=== PATIENT | male | born 1985 | race Caucasian/White ===

== ENCOUNTER 2025-03-17 19:43 | Emergency (ER) | payer SELFPAY ==
[~2025-03-17] VITALS: Ht 188 cm; Wt 117.9 kg
[2025-03-17 19:49] VITALS: PULSE 91; RESP 18; O2SAT 94
[2025-03-17 19:59] LABS: BASOPHILS % 0.7 % (0.0-1.0); EOSINOPHILS % 5.1 % (0.0-6.0); LYMPHOCYTES % 24.8 % (18.0-39.1); MONOCYTES % 9.0 % (4.4-11.3); NEUTROPHILS % 60.0 % (38.7-80.0); RED CELL DISTRIBUTION WIDTH 12.8 % (11.7-14.4)
[2025-03-17] MEDS: METHYLPREDNISOLONE SOD SUCC 125 MG/2ML VIAL IV ONE (19:59)
[2025-03-17] MEDS: MAGNESIUM SULFATE 2GM/50ML 50 ML IV ONE (20:02)
[2025-03-17] MEDS: ALBUTEROL/IPRATROPIUM 3 ML NEB NEB ONE ×2 (20:09→21:50)
[2025-03-17 20:23] LABS: EST GLOMERULAR FILTRATION RATE 71.0 ML/MIN (>=60)
[2025-03-17 20:28] LABS: CORONAVIRUS COVID-19 AG NEGATIVE (NEGATIVE)
[2025-03-17] MEDS ORDERED: IOPAMIDOL 370 MG/ML 100 ML INFUS..BTL INJ ONE (20:55)
[2025-03-17 21:50] VITALS: PULSE 86; RESP 18; O2SAT 100
[2025-03-17 22:04] VITALS: PULSE 89; RESP 18
[2025-03-17] MEDS ORDERED: AZITHROMYCIN250 MG PO (22:25)
[2025-03-17] MEDS ORDERED: PREDNISONE20 MG PO (22:25)
[2025-03-17] MEDS ORDERED: ALBUTEROL0.63 MG/3 NEB (22:25)
[2025-03-17] MEDS ORDERED: VENTOLIN HFA18 GM INH (22:25)
[2025-03-17 22:30] VITALS: PULSE 87; RESP 16; TEMP 98.3; O2SAT 100
[2025-03-17] MEDS ORDERED: ALBUTEROL/IPRATROPIUM 3 ML NEB NEB SCH (23:00)
[2025-03-18] MEDS ORDERED: METHYLPREDNISOLONE SOD SUCC 40 MG/ML VIAL 1ML IV SCH
== END 2025-03-17 22:35 | disposition home or self-care (01) ==
LOC: EDSEX 19:43 → ER 19:55
DX: R09.02 Hypoxemia (principal); J45.901 Unspecified asthma with (acute) exacerbation; Z11.52 Encounter for screening for COVID-19
CPT/HCPCS: 36415; 71260; 80053; 82550; 83690; 83880; 84484; 85025; 87428; 93005; 94640 ×2; 94799; 99284; J2919; J3475; Q9967